=== PATIENT | male | born 1955 | race Caucasian/White ===

== ENCOUNTER 2022-01-13 10:09 | Outpatient (CLI) | payer MEDICARE | END 2022-01-13 10:10 | disposition home or self-care (01) | LOC: CSHCT 10:09 | PROVIDERS: ATTEND Internal Medicine Cardiovascular Disease | DX: Z01.810 Encounter for preprocedural cardiovascular examination (principal); I48.0 Paroxysmal atrial fibrillation; R29.6 Repeated falls | CPT/HCPCS: 71275; 82565 ==

== ENCOUNTER 2022-03-27 14:47 | Outpatient (CLI) | payer MEDICARE | END 2022-03-27 14:48 | disposition home or self-care (01) | LOC: CSHMRI 14:47 | PROVIDERS: ATTEND Neurological Surgery | DX: M54.16 Radiculopathy, lumbar region (principal); Z98.1 Arthrodesis status; Z98.890 Other specified postprocedural states; M48.061 Spinal stenosis, lumbar region without neurogenic claudication; M48.07 Spinal stenosis, lumbosacral region | CPT/HCPCS: 72120; 72148 ==

== ENCOUNTER 2023-02-26 14:49 | Outpatient (CLI) | payer MEDICARE, OTHER ==
[~2023-02-26 14:49] MED LIST: Iopamidol 370 76% 100 ML VIAL ONE
== END 2023-02-26 14:50 | disposition home or self-care (01) ==
LOC: CSHCT 14:49
PROVIDERS: ATTEND Family Medicine
DX: R06.02 Shortness of breath (principal); R07.81 Pleurodynia
CPT/HCPCS: 36415; 71275; 80053; 84145; 85025

== ENCOUNTER 2023-07-13 12:00 | Outpatient (CLI) | payer MEDICARE, OTHER ==
[2023-07-13] MEDS ORDERED: Iopamidol 300 61% 100 ML VIAL FS ONE (12:11)
== END 2023-07-13 12:01 | disposition home or self-care (01) ==
LOC: CSHCT 12:00
PROVIDERS: ATTEND Internal Medicine Cardiovascular Disease
DX: I10 Essential (primary) hypertension (principal); J98.11 Atelectasis; R91.1 Solitary pulmonary nodule; Z95.818 Presence of other cardiac implants and grafts; N20.0 Calculus of kidney
CPT/HCPCS: 71260; Q9967

== ENCOUNTER 2023-08-24 10:47 | Day surgery (SDC) | payer MEDICARE, OTHER ==
[~2023-08-24 10:47] MED LIST changes: -Iopamidol 370 76% 100 ML VIAL ONE; +Iopamidol-M 200 41% 10 ML VIAL FS ONE
[2023-08-24 11:31] VITALS: BP 172/80; TEMP 98.1
== END 2023-08-24 13:07 | disposition home or self-care (01) ==
LOC: CSHRAD 10:47
PROVIDERS: ATTEND Family Medicine
PROC: B02BY0Z Computerized Tomography (CT Scan) of Spinal Cord using Other Contrast, Unenhanced and Enhanced (ICD-10-PCS; principal; 2023-08-24)
DX: M96.1 Postlaminectomy syndrome, not elsewhere classified (principal); M47.816 Spondylosis without myelopathy or radiculopathy, lumbar region
CPT/HCPCS: 62304; 72132; Q9966

== ENCOUNTER 2023-09-19 13:54 | Outpatient (CLI) | payer MEDICARE, OTHER | END 2023-09-19 13:55 | disposition home or self-care (01) | LOC: CSHCP 13:54 | PROVIDERS: ATTEND Internal Medicine Critical Care Medicine | DX: R06.09 Other forms of dyspnea (principal) | CPT/HCPCS: 94060; 94726; 94729; 94760 ==

== ENCOUNTER 2025-07-20 09:06 | Outpatient (CLI) | payer MEDICARE, OTHER | END 2025-07-20 09:07 | disposition home or self-care (01) | LOC: CSHCT 09:06 | PROVIDERS: ATTEND Orthopaedic Surgery | DX: M54.16 Radiculopathy, lumbar region (principal); M46.1 Sacroiliitis, not elsewhere classified; R10.9 Unspecified abdominal pain; Z98.890 Other specified postprocedural states; M48.061 Spinal stenosis, lumbar region without neurogenic claudication; M48.07 Spinal stenosis, lumbosacral region; N20.0 Calculus of kidney; I25.10 Atherosclerotic heart disease of native coronary artery without angina pectoris; I25.84 Coronary atherosclerosis due to calcified coronary lesion; N40.0 Benign prostatic hyperplasia without lower urinary tract symptoms | CPT/HCPCS: 72131; 74176 ==